=== PATIENT | female | born 1985 | race Hispanic/Latino ===

== ENCOUNTER 2018-07-19 21:32 | Inpatient (IN) | payer OTHER ==
[2018-07-19 22:48] VITALS: BMI 35.4
[2018-07-19] MEDS ORDERED: ceFAZolin IV 2 gm in Dextrose 2 GM/50 ML BAG IVPB ONE (22:58)
[2018-07-19] MEDS ORDERED: Oxytocin 30 UNIT 30 UNITS/500 ML BAG IV ONE (22:59)
[2018-07-19] MEDS ORDERED: Lactated Ringer's 1,000 ML IV SCH (23:00)
[2018-07-19] MEDS ORDERED: OXYTOCIN/0.9 % NS 20 UNIT/1,000 ML BAG IV SCH (23:00)
[2018-07-19] MEDS ORDERED: Lactated Ringer's 2,000 ML IV SCH (23:00)
[2018-07-19 23:10] LABS: HEMOGLOBIN 12.6 g/dL (12.0-16.0); MEAN CELL VOLUME 86.5 fl (81.0-99.0); MEAN CORPUSCULAR HEMOGLOBIN 28.9 pg (27.0-31.0); MEAN CORPUSCULAR HGB CONC 33.4 g/dL (33.0-37.0); RBC 4.34 Mil/uL (3.80-5.20); RED CELL DISTRIBUTION WIDTH 14.3 % (11.5-14.5); WHITE BLOOD COUNT 10.5 K/uL (4.8-10.8)
[2018-07-19 23:17] LABS: ALB/GLOB RATIO 1.1 (1.0-2.1); ALBUMIN 3.3 g/dL (3.5-5.0); ALT/SGPT 21 U/L (9-52); AST/SGOT 19 U/L (14-36); BLOOD UREA NITROGEN 12 mg/dl (7-17); CALCIUM 9.8 mg/dL (8.4-10.2); GFR NON-AFRICAN AMERICAN > 60; URIC ACID 4.2 mg/Dl (2.2-7.5)
[2018-07-19] MEDS ORDERED: ePHEDrine 50 mg/ml Inj ONE (23:17)
[2018-07-19] MEDS ORDERED: Morphine 1 mg/ml preservative-free Inj(Duramorph) ONE (23:19)
[2018-07-19] MEDS ORDERED: Phenylephrine 10 mg/ml Inj ONE (23:19)
[2018-07-19 23:21] LABS: INR 0.9; PROTHROMBIN TIME 10.6 Seconds (9.8-13.1)
[2018-07-19 23:23] LABS: PARTIAL THROMBOPLASTIN TIME 26.5 Seconds (25.6-37.1)
--- NOTE | 2018-07-20 00:49 | OBDS ---
DELIVERY PERSONNEL Delivery Doctor: Magda Pardo MD Technical Planner: Joel Ball RN, Emilia Bustamante RN Anesthesiologist: Evens Boswell MD MATERNAL INFORMATION Delivery Anesthesia: Spinal Medications in Delivery: ancef 2 grams, pitocin 30 units, pitocin 20 units Placenta Cultured: Yes Provider Comments: primary ltcxs boy 9,9 weigt of 7lbs 9 ounces nrfht normal tubes overies and uteurs ebl 800 ml no cmplicaiotns LABOR SUMMARY EDC: 08/03/2018 00:00 No. Babies in Womb: 1
[2018-07-20] MEDS ORDERED: Bisacodyl 5mg EC Tab PO PRN ×3 (00:54→02:57)
[2018-07-20] MEDS ORDERED: Oxycodone/Acetaminophen 5/325 mg Tab PO PRN ×5 (00:54→02:57)
--- NOTE | 2018-07-20 01:01 | OBADHP ---
Datetime: 07/20/2018 00:51 Admit Comment, IP Provider: 32 yo G 1 P0 with IUP at 38.0 came to L _ D because of contraction s and lof earlier this evenign pt preprot pain every 5-10 min 04/03 intesity.. Patient's physician is Dr. Pardo. She denies vaginal bleeding, a and she reports good movement. Denies chest pain, sh ortness of breath, dysuria, nausea and vomiting. ROS: systems reviewed and negative except for stated above in HPI. Obhx: PMhx: Nephrotic syndrome; Liver rescetion Family hx: Mother with HTN and maternal grandmother with Pancreatic cancer. Social hx: No smoking history, drinking or illicit drug use. Surgical history: Liver Resection Allergies: N.K.D.A Medications: PNV Labs: HIV: negative HbsAG: negative Rubella: immune GBS: Positive Gc/Cl: negative RPR: negative ABO: antibody: Physical exam: Patient in no acute distress. Heart: S1 and S2 appreciated on exam. No murmurs, gallops or rubs. Lungs: Clear air entry bilaterally. Abdomen: Gravid, soft, non-tender to palpation. No CVA tenderness FHT: 170 baseline; moderate variability; acceleration 15 x 15 noted; audible decelerations; catego ry 2 tracing A/P: 32 yo G 1P0 with Cat II tracing remote form delivery - Admit to L and D for induction of labor- possible given FHT tracing. - Cbc - Type and Screen - 1 bolus of LR - PIH labs sent - continous monitoring. Discussed case with Dr. Pardo --Eleanor Burkett, PGY1 agree iwth aove pt with Cat II, advised for IOL at 38 weks seocndayr to chornic renal disease however given Cat II adn remote adn latent phase without induciton ageine r/b/a/i of iol vs pltcs dw paietn. consent obat ined Pelvic Type - PN: Adequate Extremities - PN: Normal Abdomen - PN: Normal Back - PN: Normal Breast - PN: Not Done Lungs - PN: Normal Heart - PN: Normal Thyroid - PN: Not Done Neurologic - PN: Not Done HEENT - PN: Not Done General - PN: Normal Presentation-Admit: Vertex FHR - Baseline A Provider: 170 Membranes, Provider: Intact Contraction Comments Provider: irregular Comments, ACOG Physical Exam: negaitve pooling Gestation - Est Wks by US: 38.0 IP Hx Assessment: The History has been Reviewed and is Current Vital Signs Provider: Reviewed; Within Normal Limits IP Chief Complaint: Uterine contractions; Suspected ruptured membranes NICHD Variability Prov Fetus A: Moderate 6-25bpm NICHD Accel Fetus A IP Provider: [id number] FHR Category Provider Fetus A: Category II NICHD Decel Fetus A IP Provider: Late; Variable Dilatation, Provider: 1 Effacement, Provider: 30 Station, Provider: -3 Genitourinary Exam: Normal DTRs - PN: Not Done EGA AdmitDate IP: 38.0 IP Adm Impression: Term, intrauterine IP Admit Plan: Initiate Section protocol
[2018-07-20] MEDS ORDERED: DiphenhydrAMINE 50 mg/ml Inj IVP PRN ×3 (02:34→02:57)
[2018-07-20] MEDS ORDERED: Lactated Ringer's 2,000 ML IV SCH (02:45)
[2018-07-20] MEDS ORDERED: Lactated Ringer's 1,000 ML IV SCH ×2 (02:45→02:57)
[2018-07-20] MEDS ORDERED: OXYTOCIN/0.9 % NS 20 UNIT/1,000 ML BAG IV SCH ×2 (02:45→02:57)
[2018-07-20] MEDS ORDERED: Simethicone 80 mg Chewtab PO SCH ×2 (04:00)
[2018-07-20] MEDS: Simethicone 80 mg Chewtab PO SCH ×4 (04:00→21:43)
[2018-07-20 06:39] LABS: HEMOGLOBIN 11.5 g/dL (12.0-16.0); MEAN CORPUSCULAR HEMOGLOBIN 28.8 pg (27.0-31.0); MEAN CORPUSCULAR HGB CONC 33.5 g/dL (33.0-37.0); RED CELL DISTRIBUTION WIDTH 14.2 % (11.5-14.5); WHITE BLOOD COUNT 14.4 K/uL (4.8-10.8)
[2018-07-20] MEDS: Multivitamin With Minerals Tab PO SCH (08:58)
[2018-07-20] MEDS ORDERED: Multivitamin With Minerals Tab PO SCH ×2 (09:00)
--- NOTE | 2018-07-20 13:24 | OBPPN ---
Datetime: 07/20/2018 13:22 PP Pain Prov: Within normal limits PP Nausea Prov: Denies PP Flatus Prov: No PP BM Prov: No PP Breasts Prov: Normal PP Heart Prov: Normal PP Lungs Prov: Normal PP Abdomen/Uterus Prov: Normal PP Lochia Prov: Normal PP Vulva/Perineum Prov: Normal PP CVA Tenderness Prov: Normal PP Extremities Prov: Normal PP C/S Incision Prov: Normal PP Progress Prov: Not Applicable PP Impression Prov: Normal progression PP Plan Prov: Continue present management IP PP Procedures: None Vital Signs Provider PP: Reviewed; Within Normal Limits
[2018-07-20] MEDS: Oxycodone/Acetaminophen 5/325 mg Tab PO PRN (14:42)
[2018-07-20 20:04] LABS: URINE BACTERIA RARE (<OCC); URINE BILIRUBIN NEGATIVE (NEGATIVE); URINE BLOOD NEGATIVE (NEGATIVE); URINE CLARITY CLEAR (Clear); URINE COLOR YELLOW (YELLOW); URINE GLUCOSE (UA) NEG (Normal); URINE LEUKOCYTE ESTERASE NEG Leu/uL (Negative); URINE PROTEIN NEGATIVE (NEGATIVE); URINE UROBILINOGEN 0.2-1.0 mg/dL (0.2-1.0)
--- NOTE | 2018-07-20 23:43 | OP ---
PROCEDURE DATE: 07/20/2018 PREOPERATIVE DIAGNOSES: Nonreassuring heart tracing, remote from delivery. POSTOPERATIVE DIAGNOSES: Nonreassuring heart tracing, remote from delivery, term intrauterine . PROCEDURE PERFORMED: Primary low-transverse section. ANESTHESIA: Spinal. ESTIMATED BLOOD LOSS: 800 mL. CEMENT LOADER: Dr. Bairon Gregorio. SURGEON: Magda Pardo MD. FINDINGS: Live male infant, systolic presentation, cord x1. Apgars 9 and 9. Weight of 7 pounds 13 ounces. Normal-appearing uterus, tubes, and ovaries bilaterally. Dr. Bairon Gregorio was the surgical aide present for the entire case, was essential in gaining entry, retraction, holding the bladder blade, helping in delivery, closing all layers, and obtaining hemostasis and was present for the entire case. INDICATIONS: The patient is a G1, P0 at 38 weeks that arrived to Labor and Delivery with complaints of pain, possible leakage of fluids. Upon electronic monitoring, the patient was noted to have recurrent decelerations with category II tracing that did not improve with repositioning, hydration, and oxygen. The patient was counseled on risks, benefits, alternatives, and indications of induction versus primary low-transverse section. Consent was obtained. DESCRIPTION OF PROCEDURE: The patient was taken to the operating room where she was given spinal anesthesia. Once it was found to be adequate, she was positioned on the operating table in dorsal supine position. The patient was then prepped and draped in the usual sterile fashion. A time-out confirmed correct patient and correct procedure. The patient was given preoperative prophylactic antibiotics. A Pfannenstiel skin incision was made with the scalpel and carried down to the underlying fascia with the Bovie. The fascia was incised in the midline and incision extended laterally with the Bovie. Inferior aspect of the fascial incision was grasped, elevated with Yanna clamps, and underlying rectus muscles were dissected off bluntly. Attention was then turned to the superior aspect, which in a similar fashion was grasped, elevated with Yanna clamps and underlying rectus muscle resected off bluntly. The rectus muscle was then bluntly in the midline. The peritoneum was identified and entered clear space. Incision was extended laterally on the patient until there was good visualization of the bladder. The lower end of the Cary was then reinserted and the vesicouterine peritoneum was incised in a transverse fashion with Metzenbaum scissors. The bladder flap was created digitally and the lower end of the Cary was then reinserted. The lower uterine segment was incised in a transverse fashion. The surgeon's hand entered the uterine cavity and the 's head was delivered atraumatically followed by delivery of shoulders, followed by delivery of body, both oral and nasal passages of the baby were bulb suctioned. The umbilical cord was clamped and cut. Baby was handed off to the awaiting artist model. Cord blood and cord gases were collected and sent x2. The placenta was then delivered manually. The uterus was exteriorized of all clots and debris. There were normal tubes and ovaries bilaterally. The uterus was closed prior to returning it to the abdomen in a running continuous locked fashion using 0 Vicryl. A second layer of same suture was used to close the uterus in a running imbricating manner. There was good hemostasis at the uterine incision site. There were normal tubes and ovaries bilaterally. The uterus was then returned to the abdomen. Pericolic gutters were cleared of all clots and debris. There was good hemostasis at the uterine incision site. the peritoneum was reapproximated with 2-0 chromic in a running continuous fashion. The rectus was reapproximated and closed with 2-0 chromic in an interrupted manner. The fascia was reapproximated and closed with 0 Vicryl in a running continuous fashion. The subcutaneous space was closed with 2-0 plain in an interrupted manner and the skin was reapproximated and closed with 4-0 Monocryl in a running subcuticular fashion. At the end of the procedure, all needle, sponge and instrument counts were noted to be correct x2. The patient tolerated the procedure well and was transferred to the recovery room in stable condition. Magda Pardo MD
[2018-07-21] MEDS: Simethicone 80 mg Chewtab PO SCH ×4 (05:14→23:22)
[2018-07-21 07:12] LABS: HEMOGLOBIN 10.3 g/dL (12.0-16.0); MEAN CELL VOLUME 86.3 fl (81.0-99.0); MEAN CORPUSCULAR HEMOGLOBIN 28.7 pg (27.0-31.0); MEAN CORPUSCULAR HGB CONC 33.2 g/dL (33.0-37.0); RBC 3.6 Mil/uL (3.80-5.20); RED CELL DISTRIBUTION WIDTH 14.8 % (11.5-14.5); WHITE BLOOD COUNT 11.4 K/uL (4.8-10.8)
[2018-07-21 07:55] LABS: ALBUMIN 2.6 g/dL (3.5-5.0); ALT/SGPT 21 U/L (9-52); AST/SGOT 25 U/L (14-36); BLOOD UREA NITROGEN 8 mg/dl (7-17); CALCIUM 8.3 mg/dL (8.4-10.2); GFR NON-AFRICAN AMERICAN > 60
[2018-07-21] MEDS: Multivitamin With Minerals Tab PO SCH (10:21)
--- NOTE | 2018-07-21 19:00 | OBPPN ---
Datetime: 07/21/2018 10:57 PP Pain Prov: Within normal limits PP Nausea Prov: Denies PP Flatus Prov: Yes PP Breasts Prov: Normal PP Heart Prov: Normal PP Lungs Prov: Normal PP Abdomen/Uterus Prov: Normal PP Lochia Prov: Normal PP Vulva/Perineum Prov: Normal PP CVA Tenderness Prov: Normal PP Extremities Prov: Normal PP Comments Phys Exam Prov: Abd; Soft, NT, BS- present UT- Firm Incision: Clean and dry PP Impression Prov: Normal progression PP Plan Prov: Continue present management PP Progress Note Prov: S/P LTS/S, POD #1 Clinically Stable. Plan: Continue care. Encourage ambulation. Vital Signs Provider PP: Reviewed
[2018-07-22] MEDS: Simethicone 80 mg Chewtab PO SCH ×4 (06:08→21:20)
[2018-07-22] MEDS: Multivitamin With Minerals Tab PO SCH (09:22)
--- NOTE | 2018-07-22 13:26 | OBPPN ---
Datetime: 07/22/2018 10:06 PP Pain Prov: Within normal limits PP Nausea Prov: Denies PP Flatus Prov: Yes PP Breasts Prov: Normal PP Heart Prov: Normal PP Lungs Prov: Normal PP Abdomen/Uterus Prov: Normal PP Lochia Prov: Normal PP Vulva/Perineum Prov: Normal PP CVA Tenderness Prov: Normal PP Extremities Prov: Normal PP Progress Prov: Normal PP Comments Phys Exam Prov: Abd: Soft, NT, BS- present UT- Firm Incision: Clean and dry PP Impression Prov: Normal progression PP Plan Prov: Continue present management PP Progress Note Prov: S/P LTC/S, POD #2 Clinically Stable. Plan: Continue care. Encourage ambulation. RPATLE agree with above pt seen adn examiend pain mabnnet bowel remgine breat feeidn /ambutio anticp dc in am Vital Signs Provider PP: Reviewed Datetime: 07/21/2018 10:57 PP C/S Incision Prov: Normal
--- NOTE | 2018-07-22 13:28 | OBDCSUM ---
Datetime: 07/22/2018 13:26 Discharged to, Provider: Home Follow up at, Provider: Dr Pardo Disch Instr Activity: Normal activity Disch Instr Diet: Regular Discharge Instructions, Provider: Routine instructions given Discharge Diagnosis, Provider: Term Delivered Discharge Time: 07/23/2018 13:26 Follow up in weeks, Provider: 2 weeks Disch Referrals: None Contraception discussed, Prov: Yes Disch Activity Restrictions: No exercising; No sexual activity; Nothing in vagina - [place], jon bolivar Discharge Comment, Provider: dc in am Contraception after Delivery: Not Planning to Use
[2018-07-22] MEDS: Oxycodone/Acetaminophen 5/325 mg Tab PO PRN (23:38)
[2018-07-23] MEDS: Simethicone 80 mg Chewtab PO SCH ×2 (04:46→09:02)
[2018-07-23] MEDS: Multivitamin With Minerals Tab PO SCH (09:02)
[2018-07-23 18:00] VITALS: BP 111/69; PULSE 77; RESP 18; TEMP 98.1; O2SAT 99
== END 2018-07-23 13:05 | disposition home or self-care (01) | DRG 787 ==
LOC: H.EROB2 21:32 → EDSTATUS 22:21 → H.L&D 22:55 → H.OB/GYN 07-20 05:43
PROVIDERS: ADMIT Obstetrics & Gynecology; ATTEND Obstetrics & Gynecology
PROC: 4A1HXCZ Monitoring of Products of Conception, Cardiac Rate, External Approach (ICD-10-PCS; 2018-07-19)
PROC: 10D00Z1 Extraction of Products of Conception, Low, Open Approach (ICD-10-PCS; principal; 2018-07-20)
DX: O76 Abnormality in fetal heart rate and rhythm complicating labor and delivery (principal); O26.833 Pregnancy related renal disease, third trimester; N28.9 Disorder of kidney and ureter, unspecified; O99.824 Streptococcus B carrier state complicating childbirth; Z37.0 Single live birth; Z3A.38 38 weeks gestation of pregnancy; Z87.441 Personal history of nephrotic syndrome; Z91.040 Latex allergy status